=== PATIENT | female | born 1955 | race Caucasian/White ===

== ENCOUNTER → 2016-10-26 | Outpatient (CLI) | payer BC ==
[~2016-10-26] MED LIST: ALBU18002 INH; ATOR10TA88 PO; CALC-393 PO; GADAVIST IV PRN; GLUC1CAP35 PO; HYDR-5688 PO; LEVO75TA PO; LISI-729 PO; LORA10TA51 PO; MULT-506 PO; PARO1TAB29 PO
--- NOTE | 2016-10-26 11:56 | DIAGNOSTIC IMAGING REPORT ---
MRI OF THE BRAIN COMBO CLINICAL HISTORY: Diplopia. Headache. Paresthesias. COMPARISON STUDY: CT of the brain dated 12/20/2014. TECHNIQUE: MRI of the brain was performed utilizing various T1 and T2-weighted sequences in the axial, sagittal, and coronal planes. Contrast-enhanced sequences were acquired following the administration of 7 cc of Gadavist. FINDINGS: Brain parenchyma: The brain parenchyma is normal in appearance. There is no hemorrhage or mass effect. There is no restricted diffusion to suggest acute ischemia. No enhancing mass lesion is identified on the postcontrast images. Tovar-white matter differentiation is preserved. No extra-axial fluid collection is seen. The cerebellar tonsils are normal in configuration. Ventricles, sulci, and cisterns: Normal in configuration. Pituitary and sella: Unremarkable. Intracranial vasculature: Normal flow voids are maintained at the skull base. Orbits: The bony orbits are grossly intact. Orbital contents are normal in appearance. Sinuses and mastoids: Clear. Calvarium: Unremarkable. Cervical cord: Partially visualized cervical spinal cord is normal in morphology and signal intensity. Soft tissues: A 1.5 cm ovoid scalp nodule on the right is unchanged. IMPRESSION: 1. No acute intracranial abnormality. 2. A 1.5 cm ovoid nodule in the right frontal scalp is similar in appearance to 12/20/2014. Clinical correlation will be required. Electronically signed by: Lior Krishna M.D. 10/26/2016 11:54 AM Dictated Date/Time: 10/26/2016 11:48 AM
== END | disposition home or self-care (01) ==
LOC: C.MRI 10:59
PROVIDERS: ATTEND Psychiatry & Neurology Neurology
DX: H53.2 Diplopia (principal); Z87.898 Personal history of other specified conditions; R29.90 Unspecified symptoms and signs involving the nervous system

== ENCOUNTER → 2016-10-31 | Outpatient (CLI) | payer BC ==
[~2016-10-31] MED LIST changes: -GADAVIST IV PRN
== END | disposition home or self-care (01) ==
LOC: C.LABPBG 14:05
PROVIDERS: ATTEND Internal Medicine Geriatric Medicine
DX: Z11.59 Encounter for screening for other viral diseases (principal)

== ENCOUNTER → 2017-07-30 | Outpatient (CLI) | payer BC ==
[~2017-07-30] MED LIST changes: -HYDR-5688 PO
--- NOTE | 2017-07-31 15:17 | MAMMOGRAPHY REPORT ---
BILATERAL DIGITAL SCREENING MAMMOGRAM TOMOSYNTHESIS WITH CAD: 07/30/2017 CLINICAL HISTORY: Routine screening. TECHNIQUE: Breast tomosynthesis in addition to standard 2D mammography was performed. Current study was also evaluated with a Computer Aided Detection (CAD) system. COMPARISON: Comparison is made to exams dated: 07/27/2016 mammogram, 07/21/2015 mammogram, 4 mammogram, 07/17/2013 mammogram, 07/16/2012 mammogram, and 07/03/2011 mammogram - [facility]. BREAST COMPOSITION: There are scattered areas of fibroglandular density in both breasts. FINDINGS: There are benign calcifications in the left breast. Stable asymmetries in the superior ri ght breast. No suspicious mass, architectural distortion or cluster of microcalcifications is seen. IMPRESSION: ACR BI-RADS CATEGORY 2: BENIGN There is no mammographic evidence of malignancy. A 1 year screening mammogram is recommended. The pa tient will receive written notification of the results. Approximately 10% of breast cancers are not detected with mammography. A negative mammographic report should not delay biopsy if a clinically suggestive mass is present. Roxanne Teresa M.D. ay/:07/30/2017 17:15:02 Maker Up Folding: Moustapha EDWARDS(R)(M), [facility] letter sent: Normal 1/2 BI-RADS Code: ACR BI-RADS Category 2: Benign
== END | disposition home or self-care (01) ==
LOC: C.MAMM 13:06
PROVIDERS: ATTEND Internal Medicine Geriatric Medicine
DX: Z12.31 Encounter for screening mammogram for malignant neoplasm of breast (principal)

== ENCOUNTER → 2017-09-13 | Outpatient (CLI) | payer BC ==
[~2017-09-13] MED LIST changes: +ATOR10TA82 PO; -ATOR10TA88 PO
--- NOTE | 2017-09-13 17:21 | DIAGNOSTIC IMAGING REPORT ---
MRI OF THE LEFT KNEE CLINICAL HISTORY: Left knee pain. COMPARISON STUDY: MRI of the left knee dated 07/17/2016. TECHNIQUE: MRI of the left knee was performed utilizing proton density, T1, and T2-weighted sequences in the axial, sagittal, coronal planes. IV contrast was not administered for this examination. FINDINGS: Menisci: There is degenerative tearing/maceration involving the body and posterior horn of the medial meniscus. The medial meniscus appears truncated, likely related to previous meniscectomy. The lateral meniscus appears intact. Ligaments: The anterior and posterior cruciate ligaments are intact. The medial and lateral collateral ligaments are within normal limits. Extensor mechanism: The extensor mechanism is intact. Hoffa's fat pad is normal in appearance. Articular cartilage and bone: There is chondromalacia patella, with nearly full-thickness cartilage loss at the patellar apex and along the medial aspect of the medial patellar facet. There is also thinning of the underlying cartilage in the femoral trochlea. No reactive marrow edema is identified. There is no MRI evidence of fracture. There are foci of greater than 50% fissuring within the articular cartilage along the weightbearing surface in the medial compartment. There is minimal cartilage loss in the lateral compartment. There are medial marginal osteophytes as well as degenerative beaking of the tibial spine. A calcified fabella is incidentally noted. Joint effusion: There is trace joint fluid. Soft tissues: The musculature surrounding the knee joint is normal in bulk and signal intensity. A small popliteal cyst measures up to 2 cm. IMPRESSION: 1. There is degenerative tearing/maceration involving the body and posterior horn of the medial meniscus. The meniscus appears truncated, likely related to previous mastectomy. 2. The cruciate ligaments, the collateral ligaments, and the lateral meniscus are preserved. 3. Trace joint effusion and small popliteal cyst. 4. Arthritic change as above, greatest in the medial compartment and at the patellofemoral articulation. Electronically signed by: Lior Krishna M.D. 09/13/2017 5:20 PM Dictated Date/Time: 09/13/2017 5:14 PM
== END | disposition home or self-care (01) ==
LOC: C.MRIBC 15:50
PROVIDERS: ATTEND Orthopaedic Surgery
DX: M17.12 Unilateral primary osteoarthritis, left knee (principal); M25.562 Pain in left knee

== ENCOUNTER → 2017-11-06 | Outpatient (CLI) | payer BC ==
[2017-11-06 17:32] LABS: BASO ABS # 0.07 K/uL (0-0.2); EOS % 3.2 %; EOS ABS # 0.23 K/uL (0-0.5); HEMATOCRIT 42.1 % (37-47); HEMOGLOBIN 14.4 g/dL (12.0-16.0); IG# 0.03 K/uL (0.00-0.02); LYMPH % 41.8 %; LYMPH ABS # 3.02 K/uL (1.2-3.4); MEAN CELL VOLUME 90.1 fL (80-100); MEAN CORPUSCULAR HEMOGLOBIN 30.8 pg (25-34); MEAN CORPUSCULAR HGB CONC 34.2 g/dl (32-36); MEAN PLATELET VOLUME 10.7 fL (7.4-10.4); MONO % 6.9 %; NEUT % 46.7 %; NEUT ABS # 3.37 K/uL (1.4-6.5); PLATELET COUNT 222 K/uL (130-400); RED CELL DISTRIBUTION WIDTH CV 13.1 % (11.5-14.5); RED CELL DISTRIBUTION WIDTH SD 42.7 fL (36.4-46.3); WHITE BLOOD COUNT 7.22 K/uL (4.8-10.8)
[2017-11-06 17:48] LABS: ALBUMIN 3.9 gm/dl (3.4-5.0); ALT/SGPT 43 U/L (12-78); AST/SGOT 32 U/L (15-37); BLOOD UREA NITROGEN 14 mg/dl (7-18); CALCIUM 8.6 mg/dl (8.5-10.1); CARBON DIOXIDE 25 mmol/L (21-32); CREATININE 0.75 mg/dl (0.60-1.20); GLUCOSE 92 mg/dl (70-99); POTASSIUM 3.9 mmol/L (3.5-5.1); SODIUM 135 mmol/L (136-145); TOTAL PROTEIN 7.5 gm/dl (6.4-8.2)
[2017-11-06 18:00] LABS: ALKALINE PHOSPHATASE 120 U/L (45-117); CHOLESTEROL 199 mg/dl (0-200); LDL CHOLESTEROL CALCULATED 94 mg/dl
== END | disposition home or self-care (01) ==
LOC: C.LABPBG 13:49
PROVIDERS: ATTEND Internal Medicine Geriatric Medicine
DX: G47.33 Obstructive sleep apnea (adult) (pediatric) (principal); I10 Essential (primary) hypertension; E03.9 Hypothyroidism, unspecified; M85.80 Other specified disorders of bone density and structure, unspecified site; E78.5 Hyperlipidemia, unspecified; J45.990 Exercise induced bronchospasm; H53.2 Diplopia; R05 Cough

== ENCOUNTER → 2017-11-13 | Outpatient (CLI) | payer BC | END | disposition home or self-care (01) | LOC: C.MAMM 13:08 | PROVIDERS: ATTEND Internal Medicine Geriatric Medicine | DX: M85.88 Other specified disorders of bone density and structure, other site (principal); M85.852 Other specified disorders of bone density and structure, left thigh; M85.851 Other specified disorders of bone density and structure, right thigh ==

== ENCOUNTER → 2017-12-07 | Outpatient (CLI) | payer BC | END | disposition home or self-care (01) | LOC: C.PAPS 08:05 | PROVIDERS: ATTEND Physician Assistant | DX: N95.8 Other specified menopausal and perimenopausal disorders (principal); Z01.419 Encounter for gynecological examination (general) (routine) without abnormal findings ==

== ENCOUNTER → 2018-01-29 | Outpatient (CLI) | payer BC ==
[~2018-01-29] VITALS: Ht 157.5 cm; Wt 73.2 kg
[2018-01-29 14:54] VITALS: BP 118/76; PULSE 99; Ht 157.5 cm; Wt 73.2 kg
== END | disposition home or self-care (01) ==
LOC: C.NEUR 12:58
PROVIDERS: ATTEND Internal Medicine Pulmonary Disease
DX: G47.33 Obstructive sleep apnea (adult) (pediatric) (principal); R53.83 Other fatigue

== ENCOUNTER → 2018-02-19 | Outpatient (CLI) | payer BC ==
--- NOTE | 2018-02-20 05:55 | PAP/PSG TECHNICIAN REPORT ---
[facility] Railway Equipment Operator Polysomnogram Report Study name: None Report date: 02/20/2018 Study date: 02/19/2018 Referring Physician: Tatyana Aleman PA-C Name: MARY DEL ROSARIO Interpreting Physician: Omar Olmos M.D. Date of : 1955 Railway Equipment Operator: KATIE Guillaume. Sex: Female Age: 62 StudyType: PSG Weight: 161.3 lbs Height: 62 years, Height 5' 2" Neck Circum:12.5in. BMI: 29.5 Medications: Acyclovir 5% ointment, Atorvastatin Calcium 10mg, Calcium 600+D, Clatitin 10mg, Levothyroxine 75mcg, Lisinopril 5mg, Meloxicam 7.5mg, Multivitamin,Nasonex, Paroxetine HCl 40mg, ProAir HFA 108mcg/act, Tums 500mg, Tylenol Patient History Study started on room air with no ETCO2 monitoring in room #8. 62 yr old female here [facility] for a diagnostic psg. She was diagnosed with moderate CATIA in 2000 but stopped using cpap in 2014 because she became intolerant. She is feeling fatigued again and is snoring. Her ESS=7/24. Neck circ=12.5inches. Parameters Monitored NPSG: E1-M2, E2-M1, Fp1-M2, Fp2-M1, F3-M2, F4-M2, F4-M1, C3-M2, C4-M2, C4-M1, O1-M2, O2-M2, O2-M1, T3-M2, T4-M1, P3-M2, P4-M1, CHIN1, CHIN2, HR, EKG, Legs, PFLOW, SNOR, FLOW, CFLOW, Tidal Volume, THOR, ABDO, SpO2, PLTH, CPRESS, ETCO2 Wave, ETCO2, pH Sleep Architecture Sleep Stages Time at Lights Off 9:33:33 PM STAGES Time (min.) TST (%) Time at Lights On 5:23:03 AM Wake 106.5 -- Total Recording Time (TRT) 469.50 min. N1 5.0 1 Total Sleep Period (TSP) 405.5 min. N2 209.5 58 Total Sleep Time (TST) 363.0min. N3 100.5 28 Awake Time 106.5 min. REM 48.0 13 Wake after Sleep Onset 42.5 min. Sleep Efficiency (SE) 77 % Sleep Onset Latency (RIGO) 64.0 min. Number of Stage 1 Shifts None Awakenings 21 Stage Changes 58 Number of REM periods 2 REM 48.0 13 REM Latency 341.5 min. NREM 315.0 87 Body Position Analysis Supine Right Left Side Prone Vertical Total Sleep Time (min.) 20.9 179.0 184.0 363.00 0.0 0.0 Total Sleep Time (%) 0% 49% 51% 100 0% N/A% Total Sleep Time REM (min.) 0.0 48.0 0.0 None 0.0 0.0 Total Sleep Time NREM (min.) 0.0 131.0 184.0 None 0.0 0.0 Intermittent Wake (min.) 20.9 59.3 26.3 None 0.0 0.0 Total Sleep Period (%) 0% None None None None None Arousals Myoclonus (PLM) * Events Count Index Events Count Index Spontaneous 20 3 Events Awake (PLMW) 104 58.6 Respiratory 8 1.7 Events Asleep w/ Arousal (PLMA) 7 1.2 PLM 6 1 Events Asleep w/o Arousal (PLMS) 51 8.4 Snoring 4 1 Total Asleep 58 9.6 Total 38 6 Total 162 21 Respiratory Analysis * CA OA MA CH H RERA Total Count 13 3 1 0 20 1 37 Index 2.1 0.5 0.2 0 3.3 0 6.3 Mean Duration 17.9 14.3 18.1 0.00 22.5 29.8 20.4 Longest Duration 29.5 20.1 18.1 0.00 18.1 29.8 38.5 Respiratory Event Summary Total Supine ~Supine Right Left Prone REM NREM Apneas Count 17 N/A 17 13 4 N/A 2 15 Index 2.8 N/A 3 4.4 1.3 N/A 3 3 Hypopneas (4% Desat) Count 20 N/A 20 7 13 N/A 6 14 Index 3.3 N/A 3 2.3 4.2 N/A 7.5 2.7 Apneas & All Hypopneas Count 37 N/A 37 20 17 N/A 8 29 Index 6.1 N/A 6 7 6 N/A 10.0 5.5 Respiratory Events (Resident Care Coordinator+All Hyp+RERA) Count 37 N/A 38 21 17 N/A 8 29 Index 6.3 N/A 6 7.0 5.5 N/A 11.3 5.5 Respiratory Related Arousal Count 8 N/A 10 3 7 N/A 1 9 Index 1.7 N/A 2 1 2 N/A 1 2 Snoring Analysis Supine Right Left Prone REM NREM Total Snore duration 14.1 min Snores count N/A 224 373 N/A 9 588 597 Snore mean duration 1.4 Sec Snores index N/A 75 122 N/A 11.3 112.0 98.7 TST with snoring (%) 3.9% Desaturation Event Summary: Minimum %SpO2 Event Count Mean/Min/Max Duration(sec.) Desaturation Index % Time In Bed > 90 59 26.5 / 9.5 / 59.3 8.8 87.1 86 - 90 8 17.1 / 4.3 / 47.3 8.1 12.8 81 - 85 2 8.8 / 8.5 / 9.0 248.3 0.1 76 - 80 0 N/A 0.0 0.0 71 - 75 0 N/A 0.0 0.0 66 - 70 0 N/A 0.0 0.0 61 - 65 0 N/A 0.0 0.0 56 - 60 0 N/A 0.0 0.0 51 - 55 0 N/A 0.0 0.0 < 50 0 N/A 0.0 0.0 Total REM NREM Awake <50% 0.0 min. 0.0 min. 0.0 min. 0.0 min. 51 - 60% 0.0 min. 0.0 min. 0.0 min. 0.0 min. 61 - 70% 0.0 min. 0.0 min. 0.0 min. 0.0 min. 71 - 80% 0.1 min. 0.0 min. 0.0 min. 0.1 min. 81 - 90% 59.7 min. 1.4 min. 33.0 min. 25.2 min. 91 - 100% 403.9 min. 46.6 min. 281.7 min. 75.6 min. Average 92 93 92 92 Minimum SpO2 77 88 85 77 Desaturation Event Index 8.3 8.8 6.7 13.0 # Desat. Events below 89% 21 2 8 11 Time(%) with Saturation below 89% 1.2 0.0 0.5 0.7 Time(min.) with Saturation below 89% 5.6 0.2 2.4 3.0 Time (mins) REM (mins) NREM (mins) % of TST SpO2 Below 90% 35 6 N29 3.4 SpO2 Below 88% 4 0 0 0 Heart Rate Analysis Min (bpm) Max (bpm) Average (bpm) Awake 30 127 83 NREM 72 127 82 REM 72 87 81 Overall 72 127 82 Supplemental O2 Values Minimum O2 level: None Value Start Time End Time Railway Equipment Operator Comments Mrs. Del Rosario slept in the right, left and supine positions. No cardiac arrhythmia noted. Some leg movements were noted. No bruxism noted. Snoring was noted and scored as a 3 on a scale of 1 through 5. (0=no snoring, 5=snoring loud enough to be heard through a closed door or down the hale way) She did not use the restroom during the night. She stated that she did not sleep as well as when at home( not as long). The final report will be interpreted and signed by a sleep physician. The completed physician report will then be placed in the patient medical record. Therapy (cm H2O) 0 TIB (min.) 469.5 TST (min.) 363.0 Sleep Onset (min.) 64.0 REM Onset From Sleep (min.) 341.5 Sleep Efficiency % 77 Wakefulness (%) 23 Wakefulness (min.) 106.5 NREM 1 (%) 1 NREM 1 (min.) 5.0 NREM 2 (%) 58 NREM 2 (min.) 209.5 NREM 3 (%) 28 NREM 3 (min.) 100.5 REM (%) 13 REM (min.) 48.0 # Arousals 38 Arousal Index 6 # Snore 597 Snore Index 98.7 AHI 6.1 AHI Supine N/A AHI Non-Supine 6 NREM AHI 5.5 REM AHI 10.0 RDI 6.3 # Obstructive Apnea 3 # Central Apnea 13 # Mixed Apnea 1 # Hypopneas 20 RERAs 1 Total Respiratory Events 42 Time Below SpO2 89% (min.) 2.6 Mean NREM SpO2 (%) 92 Mean REM SpO2 (%) 93 Mean Sleep SpO2 (%) 92 Min NREM SpO2 (%) 85 Min REM SpO2 (%) 88 Position Supine (min.) 20.9 Position Non-supine (min.) 363.0 LM Index Sleep 9.6 LM Index NREM 10.5 LM Index REM 3.8 Mean Heart Rate (bpm) 82 Min Heart Rate (bpm) 72
--- NOTE | 2018-02-21 13:08 | POLYSOMNOGRAPH REPORT ---
CLINICAL DATA: A 62-year-old female with BMI of 29.[address] Sami Curiel and Tatyana Aleman for reevaluation of sleep apnea. She had a previous history of moderate sleep apnea in 2001, but stopped using CPAP in 2014 because she became intolerant. She is feeling fatigued again and snoring. Her [place] sleepiness score is 7/24. SLEEP ARCHITECTURE: Total sleep period was 405.5 minutes. Total sleep time was 363 minutes divided between 315 minutes of non-REM sleep and 48 minutes of REM sleep. Sleep onset latency was delayed at 64 minutes. REM latency was delayed at 341.5 minutes. Sleep efficiency was reduced at 77%. Wake after sleep onset was 42.5 minutes. Sleep consisted of stage N1 1%, stage N2 58%, stage N3 28%, and REM 13%. AROUSAL DATA: 38 arousals were recorded for an index of 6 per hour. PLM DATA: 58 limb movements during sleep were recorded for an index of 9.6 per hour with arousal index of 1.2 per hour. RESPIRATORY DATA: Mild sleep apnea was documented. The AHI was 6.1. The RDI was 6.3. There were 13 central, 3 obstructive, and 1 mixed apneic episode. The longest apneic episode was 29.5 seconds. There were 20 hypopneic episodes. The mean duration was 22.5 seconds. There was 1 RERA of 29.8 seconds in duration. OXIMETRY DATA: Transient hypoxemia was seen. Oxygen chris was 85% during non-REM sleep, the mean saturation was 92%. Time below 88% was 4 minutes. EKG: Heart rates ranged from 72-127 beats per minute. No arrhythmias were noted. MANAGER CONTRACT'S COMMENTS: The patient slept in the right, left, and supine positions. Snoring was moderate, rated 3 on a scale of 1-5. IMPRESSION: Very mild sleep apnea/hypopnea with an AHI of 6.1 and an RDI of 6.3. RECOMMENDATIONS: The patient may benefit from weight loss, use of an oral appliance, or possibly CPAP. Clinical correlation is needed. [facility]
== END | disposition home or self-care (01) ==
LOC: C.NEUR 21:00
PROVIDERS: ATTEND Physician Assistant Medical
DX: G47.33 Obstructive sleep apnea (adult) (pediatric) (principal); R53.83 Other fatigue; Z88.0 Allergy status to penicillin